=== PATIENT | male | born 1980 | race African-American/Black ===

== ENCOUNTER 2017-08-17 22:59 | Emergency (ER) | payer OTHER ==
[~2017-08-17] VITALS: Ht 180.3 cm; Wt 74.0 kg
[2017-08-18 01:13] VITALS: BP 114/78
== END 2017-08-18 01:52 | disposition home or self-care (01) ==
LOC: ED 08-18 01:40
DX: F10.20 Alcohol dependence, uncomplicated (principal); F19.20 Other psychoactive substance dependence, uncomplicated
CPT/HCPCS: 99283

== ENCOUNTER 2017-09-29 23:08 | Emergency (ER) | payer MEDICAID, OTHER ==
[~2017-09-29] VITALS: Ht 180.3 cm; Wt 82.0 kg
[2017-09-29] MEDS ORDERED: DIPH,PERTUSS(ACELL),TET VAC/PF 0.5 ML IM-VACC ONE (23:30)
[2017-09-29] MEDS ORDERED: LIDOCAINE 1%, 10ML INFIL ONE (23:30)
[2017-09-29] MEDS ORDERED: LIDOCAINE 1%, 20ML ONE (23:50)
[2017-09-30] MEDS ORDERED: DIPH,PERTUSS(ACELL),TET VAC/PF 0.5 ML IM-VACC ONE (00:33)
[2017-09-30 05:25] VITALS: BP 122/82
== END 2017-09-30 06:09 | disposition home or self-care (01) ==
LOC: ED 09-30 00:35
DX: S61.412A Laceration without foreign body of left hand, initial encounter (principal); F10.10 Alcohol abuse, uncomplicated; W22.8XXA Striking against or struck by other objects, initial encounter; Y93.39 Activity, other involving climbing, rappelling and jumping off; Y99.8 Other external cause status; Y92.89 Other specified places as the place of occurrence of the external cause
CPT/HCPCS: 12001; 70450; 90471; 90715

== ENCOUNTER 2018-03-07 05:10 | Emergency (ER) | payer MEDICAID ==
[~2018-03-07] VITALS: Ht 172.7 cm; Wt 80.0 kg
[2018-03-07 05:14] VITALS: BP 141/104
== END 2018-03-07 05:26 | disposition home or self-care (01) ==
LOC: ED 05:23
DX: F10.220 Alcohol dependence with intoxication, uncomplicated (principal)
CPT/HCPCS: 99283